=== PATIENT | male | born 1965 | race Caucasian/White ===

== ENCOUNTER 2017-04-23 16:00 | Emergency (ER) | payer MEDICAID ==
[~2017-04-23 16:00] MED LIST: ACCUMIS15; BLOO1KIT65; GLUC-15 TOPICAL; IBUP800T23 PO; INDO25CA PO; LANCETS1 MI1; LOVA40TA PO; ONETTES4; VIST25CA PO; [UNRECOGNIZED DRUG - OTHER]
[2017-04-23 16:02] VITALS: BP 158/85; PULSE 96; RESP 16; TEMP 98.8; O2SAT 95
--- NOTE | 2017-04-23 16:17 | PD ---
Physical Exam Date Seen by Provider: Apr 23, 2017 Time Seen by Provider: 16:14 Narrative 51-year-old male with history of 8.5 millimeter kidney stone 3 weeks ago. Patient is currently being treated with pain medications and Flomax. Patient has not seen a urologist due to insurance issues at this time. Urinalysis pharynx lower anterior abdominal pain with radiation to the left flank. Pain is currently has pain rated at 8 to 9 / 10. Data Data Last Documented VS Vital Signs Date Time Temp Pulse Resp B/P (MAP) Pulse Ox O2 Delivery O2 Flow Rate FiO2 04/23/17 16:02 98.8 96 16 158/85 (109) 95 MDM Medical Record Reviewed: Yes Supervised Visit with GUERITA: Yes Narrative Course Vital signs are stable. Urinalysis is ordered. Patient is awaiting medical bed placement. Condition: Stable Omer Tate Apr 23, 2017 16:17
[2017-04-23 18:02] LABS: BLOOD, URINE SMALL (NEG); COMMENT (UR) CULT NOT INDICATED; CULTURE IF INDICATED CULT NOT INDICATED; GLUCOSE,URINE NEG (NEG); KETONE, URINE NEG (NEG); NITRITE,URINE NEG (NEG); PH, URINE 5.5 (5.0-8.5); URINE COLOR YELLOW (YELLW/STRAW)
== END 2017-04-23 19:20 | disposition left against medical advice (07) ==
LOC: NED 16:00
DX: M54.5 Low back pain (principal); Z87.442 Personal history of urinary calculi
CPT/HCPCS: 81001; 99283